=== PATIENT | female | born 1990 | race Caucasian/White ===

== ENCOUNTER 2016-07-07 14:53 | Inpatient (IN) | payer BC, OTHER ==
[~2016-07-07] VITALS: Ht 167.6 cm; Wt 89.4 kg
--- NOTE | ~2016-07-07 | EKG ---
[place], [place] ELECTROCARDIOGRAM REPORT NAME: ARTHUR COLEMAN UNIT #: [id number] ROOM: [facility] DOCTOR: ISAI SESAY MD BIRTHDATE: [birth year] DOS: 07/07/2016 TIME: 1646 hours. FINDINGS: 1. Sinus bradycardia at rate of 51. 2. ST elevation leads V1 and V2 suggestive of acute anterior injury. 3. Abnormal electrocardiogram. ISAI SESAY MD CM:EKGRPT:ELECTROCARDIOGRAM REPORT [id number] ISAI SESAY MD
[2016-07-07 15:55] VITALS: BP 120/72
[2016-07-07 16:15] LABS: BASO % 0.2 % (0.0-1.0); HEMATOCRIT 33.4 % (37.0-47.0); HEMOGLOBIN 10.5 g/dl (12.0-16.0); LYMPH % 22.1 % (27.0-41.0); MEAN CELL VOLUME 75.9 fl (81.0-99.0); MEAN CORPUSCULAR HGB 23.9 pg (27.0-31.0); MEAN CORPUSCULAR HGB CONC 31.4 g/dl (33.0-37.0); MEAN PLATELET VOLUME 10.6 fl (9.6-12.3); MONO # 0.6 10*3/uL (0.1-1.0); MONO % 6.6 % (3.0-9.0); NEUT # 6.5 10*3/uL (2.3-7.9); NEUT % 70.7 % (47.0-73.0); PLATELET COUNT AUTOMATED 321 10*3/uL (130-400); RED CELL DISTRI WIDTH 15.1 % (0-14.5); WHITE BLOOD COUNT 9.2 10*3/uL (4.8-10.8)
[2016-07-07 16:28] LABS: PROTHROMBIN TIME 10.9 SECONDS (9.0-12.4)
[2016-07-07 16:30] LABS: ALBUMIN 3.4 gm/dl (3.1-4.5); ALKALINE PHOSPHATASE 54 U/L (45-117); BILIRUBIN, TOTAL 0.5 mg/dl (0.2-1.0); BUN 4 mg/dl (7-24); CARBON DIOXIDE 26 mmol/L (21-32); CHLORIDE 110 mmol/L (98-107); EST GLOM FILT AFRICAN AMERICAN > 60 ml/min; GLUCOSE 94 mg/dL (65-99); SGOT/AST 12 IU/L (3-35); SGPT/ALT 22 U/L (12-78); SODIUM 144 mmol/L (136-145); TOTAL PROTEIN 7.4 gm/dL (6.4-8.2)
[2016-07-07] MEDS ORDERED: GABAPENTIN800 MG PO (16:35)
[2016-07-07] MEDS ORDERED: LAMICTAL150 MG PO (16:35)
[2016-07-07 16:40] LABS: BILIRUBIN NEGATIVE (NEGATIVE); BLOOD NEGATIVE (NEGATIVE); CLARITY CLOUDY (CLEAR); COLOR YELLOW (YELLOW); GLUCOSE NEGATIVE (NEGATIVE); KETONE NEGATIVE (NEGATIVE); LEUKO ESTERASE 1+ (NEGATIVE); NITRITE NEGATIVE (NEGATIVE); PH 6.5 (5.0-9.0); PROTEIN NEGATIVE (NEGATIVE); SPECIFIC GRAVITY <= 1.005 (1.005-1.030)
[2016-07-07 17:11] LABS: URINE AMPHETAMINES < 1000 (1000ng/ml); URINE BARBITURATES < 200 (200ng/ml); URINE COCAINE > 300 (300ng/ml)
[2016-07-07 17:21] LABS: BACTERIA 1+; URINE REFLEX COMMENT YES (NO)
[2016-07-07 20:00] VITALS: BP 113/71
[2016-07-08] VITALS: BP 115/62
[2016-07-08 08:00] VITALS: BP 131/65
[2016-07-08] MEDS ORDERED: SEROQUEL XR150 MG PO (09:52)
[2016-07-08] MEDS ORDERED: SEROQUEL300 MG PO (09:53)
[2016-07-08 12:00] VITALS: BP 124/64
[2016-07-08 16:00] VITALS: BP 112/65
[2016-07-08 20:00] VITALS: BP 114/64
[2016-07-09] VITALS: BP 113/57
[2016-07-09 08:00] VITALS: BP 104/64
[2016-07-09 12:00] VITALS: BP 113/64
[2016-07-09 16:00] VITALS: BP 115/65; BP 134/62
[2016-07-09 20:00] VITALS: BP 121/55
[2016-07-10] VITALS: BP 111/69
[2016-07-10 08:00] VITALS: BP 145/65
[2016-07-10] MEDS ORDERED: KRISTALOSE10 GM/PACK PO (08:20)
[2016-07-10] MEDS ORDERED: ROPINIROLE HYD0.5 MG PO (08:20)
[2016-07-10] MEDS ORDERED: ZOFRAN 4 MG ED2 TAB PO (08:20)
[2016-07-10] MEDS ORDERED: ATARAX,VISTARIL50 MG PO (08:20)
== END 2016-07-10 10:30 | disposition home or self-care (01) | DRG 897 ==
LOC: 4E 14:53
PROVIDERS: Internal Medicine
DX: F11.23 Opioid dependence with withdrawal (principal); R00.1 Bradycardia, unspecified; E66.9 Obesity, unspecified; D50.9 Iron deficiency anemia, unspecified; F14.10 Cocaine abuse, uncomplicated; F17.200 Nicotine dependence, unspecified, uncomplicated; G40.909 Epilepsy, unspecified, not intractable, without status epilepticus; F12.10 Cannabis abuse, uncomplicated; Z79.899 Other long term (current) drug therapy; Z68.34 Body mass index [BMI] 34.0-34.9, adult; Z88.0 Allergy status to penicillin